=== PATIENT | male | born 1995 | race Hispanic/Latino ===

== ENCOUNTER 2018-12-31 04:56 | Emergency (ER) | payer OTHER ==
[2018-12-31 05:14] VITALS: BP 124/79; PULSE 95; RESP 16; TEMP 98.4; O2SAT 98
[2018-12-31] MEDS ORDERED: Tetanus Immune Globulin 250 Units Inj IM STA (05:30)
[2018-12-31] MEDS ORDERED: Bacitracin 500 Units/gm Oint Foilpak UD TOP STA (05:30)
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
[2018-12-31] MEDS ORDERED: Bacitracin 500 Units/gm Oint Foilpak UD ONE (05:34)
[2018-12-31] MEDS ORDERED: Tdap Vaccine 0.5 ml Vial (10-64 yrs) IM ONE (05:39)
[2018-12-31] MEDS ORDERED: Nitroglycerin 2% Ointment Foilpak UD TOP ONE (15:30)
== END 2018-12-31 06:10 | disposition home or self-care (01) ==
LOC: H.ER 04:56
DX: S00.81XA Abrasion of other part of head, initial encounter (principal); Y35.811A Legal intervention involving manhandling, law enforcement official injured, initial encounter; Y99.0 Civilian activity done for income or pay